=== PATIENT | female | born 1935 | race Caucasian/White ===

== ENCOUNTER 2016-08-13 13:04 | Inpatient (IN) | payer MEDICARE, BC ==
[~2016-08-13] VITALS: Ht 170.2 cm; Wt 56.6 kg
[~2016-08-13 13:04] MED LIST: AMIT50TA PO; ASPI-515 PO; BUDE10.22 INH; CEFD300C2 PO; DIGO250T PO; DILT120C2 PO; DOXY100C2 PO; FAMO20TA7 PO; FLUT1AER INH; FURO-93 PO; FURO20TA3 PO; FURO40TA6 PO; GABA100C8 PO; LEVO750T26 PO; LIDO700A5 TD; LINE600T37 PO; METO25TA35 PO; METO50TA82 PO; MORP15TA3 PO; MORP15TA39 PO; MULT1TAB9 PO; OXYC5CAP4 PO; POLY17PO5 PO; POTA10TA12 PO; POTA20PA PO; PRED5TAB PO; SENN1TAB7 PO; SIMV20TA3 PO; SPIR25TA PO; SULF1TAB24 PO; TIOT18CA INH; WARF1TAB7 PO; WARF2.5T PO; WARF2.5T73 PO-COUM; WARF2TAB7 PO; WARF5TAB7 PO-COUM
[2016-08-13 14:35] LABS: ASPARTATE AMINO TRANSFERASE 21 U/L (15-37); BLOOD UREA NITROGEN 20 mg/dL (7-18)
[2016-08-13] MEDS ORDERED: ELAVIL PO (15:57)
[2016-08-13] MEDS ORDERED: WARF2.5T PO (15:57)
[2016-08-13] MEDS ORDERED: FAMO-79 PO (15:57)
[2016-08-13] MEDS ORDERED: SODIUM CHLORIDE FLUSH 10ML SYR IVF ONE (16:00)
[2016-08-13] MEDS ORDERED: AMPICILLIN/SULBACTAM 3 GM in SODIUM CHLORIDE 0.9% 100 ML IVPB ONE (16:00)
[2016-08-13] MEDS ORDERED: DOCUSATE 100 MG CAPSULE PO PRN (18:00)
[2016-08-13] MEDS ORDERED: BISACODYL 10 MG SUPP PR PRN (18:00)
[2016-08-13] MEDS ORDERED: POLYETHYLENE GLYCOL 17 GM PACKET PO PRN (18:00)
[2016-08-13] MEDS ORDERED: ACETAMINOPHEN 325 MG TABLET PO PRN (18:00)
[2016-08-13] MEDS ORDERED: WARFARIN 2.5 MG TABLET PO-COUM SCH (18:00)
[2016-08-13] MEDS ORDERED: WARFARIN 1 MG TABLET PO-COUM ONE (19:00)
[2016-08-13 19:12] VITALS: BP 102/55
[2016-08-13 19:16] VITALS: BP 107/58
[2016-08-13 20:00] VITALS: BP 110/65
[2016-08-13] MEDS: Budesonide/Formoterol Fumarate (Symbicort 80-4.5 Mcg Inhaler) INH SCH (21:00)
[2016-08-13] MEDS: METOPROLOL TARTRATE 25 MG TABLET PO SCH (22:39)
[2016-08-13] MEDS: AMITRIPTYLINE 50 MG TABLET PO SCH (22:39)
[2016-08-13] MEDS: CEFTAROLINE 400 MG in SODIUM CHLORIDE 0.9% 100 ML IV SCH (23:17)
[2016-08-14 01:40] VITALS: BP 120/64
[2016-08-14] MEDS ORDERED: IPRATROPIUM 0.5 MG/2.5 ML INHA NPPB PRN (02:00)
[2016-08-14] MEDS: OXYcodone IR 5MG TABLET PO PRN ×2 (02:30→19:49)
[2016-08-14 07:25] LABS: BLOOD UREA NITROGEN 22 mg/dL (7-18)
[2016-08-14 07:28] LABS: ASPARTATE AMINO TRANSFERASE 15 U/L (15-37)
[2016-08-14 07:33] VITALS: BP 150/78
[2016-08-14] MEDS ORDERED: FUROSEMIDE 20 MG TABLET PO SCH (09:00)
[2016-08-14] MEDS: Budesonide/Formoterol Fumarate (Symbicort 80-4.5 Mcg Inhaler) INH SCH ×2 (10:35→21:00)
[2016-08-14] MEDS: DIGOXIN 0.25 MG TABLET PO SCH (11:11)
[2016-08-14] MEDS: METOPROLOL TARTRATE 25 MG TABLET PO SCH ×2 (11:12→21:29)
[2016-08-14] MEDS: CEFTAROLINE 400 MG in SODIUM CHLORIDE 0.9% 100 ML IV SCH (11:54)
[2016-08-14 12:29] VITALS: BP 107/52
[2016-08-14 13:11] VITALS: BP 148/68
[2016-08-14] MEDS ORDERED: WARFARIN 1 MG TABLET PO-COUM ONE (18:00)
[2016-08-14] MEDS ORDERED: SODIUM PHOSPHATE 20 MMOL in SODIUM CHLORIDE 0.9% 500 ML IV ONE (19:30)
[2016-08-14 19:44] VITALS: BP 130/64
[2016-08-14] MEDS: AMITRIPTYLINE 50 MG TABLET PO SCH (21:28)
[2016-08-15 02:05] VITALS: BP 137/64
[2016-08-15] MEDS: CEFTAROLINE 400 MG in SODIUM CHLORIDE 0.9% 100 ML IV SCH ×2 (02:28→16:01)
[2016-08-15] MEDS: OXYcodone IR 5MG TABLET PO PRN ×2 (04:12→12:38)
[2016-08-15 07:55] VITALS: BP 115/61
[2016-08-15] MEDS: Budesonide/Formoterol Fumarate (Symbicort 80-4.5 Mcg Inhaler) INH SCH ×2 (09:00→21:00)
[2016-08-15] MEDS: DIGOXIN 0.25 MG TABLET PO SCH (09:24)
[2016-08-15] MEDS: METOPROLOL TARTRATE 25 MG TABLET PO SCH ×2 (09:24→21:07)
[2016-08-15 13:59] VITALS: BP 133/69
[2016-08-15] MEDS ORDERED: WARFARIN 2.5 MG TABLET PO-COUM ONE (18:00)
[2016-08-15 19:31] VITALS: BP 117/68
[2016-08-15] MEDS: AMITRIPTYLINE 50 MG TABLET PO SCH (21:07)
[2016-08-16 01:50] VITALS: BP 148/77
[2016-08-16] MEDS: CEFTAROLINE 400 MG in SODIUM CHLORIDE 0.9% 100 ML IV SCH ×2 (03:03→16:00)
[2016-08-16] MEDS: OXYcodone IR 5MG TABLET PO PRN ×2 (04:11→23:02)
[2016-08-16 06:00] LABS: BLOOD UREA NITROGEN 12 mg/dL (7-18)
[2016-08-16 07:28] VITALS: BP 144/64
[2016-08-16] MEDS: DIGOXIN 0.25 MG TABLET PO SCH (09:00)
[2016-08-16] MEDS: Budesonide/Formoterol Fumarate (Symbicort 80-4.5 Mcg Inhaler) INH SCH ×2 (09:00→20:35)
[2016-08-16] MEDS: METOPROLOL TARTRATE 25 MG TABLET PO SCH ×2 (09:00→20:34)
[2016-08-16 15:13] VITALS: BP 131/78
[2016-08-16] MEDS ORDERED: WARFARIN 2 MG TABLET PO-COUM SCH (18:00)
[2016-08-16 19:51] VITALS: BP 148/66
[2016-08-16] MEDS: AMITRIPTYLINE 50 MG TABLET PO SCH (20:34)
[2016-08-17 01:18] VITALS: BP 152/69
[2016-08-17] MEDS: CEFTAROLINE 400 MG in SODIUM CHLORIDE 0.9% 100 ML IV SCH ×2 (03:14→14:50)
[2016-08-17] MEDS: OXYcodone IR 5MG TABLET PO PRN ×2 (03:14→22:38)
[2016-08-17 07:20] VITALS: BP 129/59
[2016-08-17] MEDS: Budesonide/Formoterol Fumarate (Symbicort 80-4.5 Mcg Inhaler) INH SCH ×2 (09:00→20:52)
[2016-08-17] MEDS: METOPROLOL TARTRATE 25 MG TABLET PO SCH ×2 (09:16→20:53)
[2016-08-17] MEDS: DIGOXIN 0.25 MG TABLET PO SCH (10:49)
[2016-08-17 13:37] VITALS: BP 130/68
[2016-08-17] MEDS ORDERED: WARFARIN 1 MG TABLET PO-COUM SCH (18:00)
[2016-08-17 19:40] VITALS: BP 166/65
[2016-08-17] MEDS: AMITRIPTYLINE 50 MG TABLET PO SCH (20:53)
[2016-08-18 00:59] VITALS: BP 149/85
[2016-08-18] MEDS: OXYcodone IR 5MG TABLET PO PRN (02:41)
[2016-08-18] MEDS: CEFTAROLINE 400 MG in SODIUM CHLORIDE 0.9% 100 ML IV SCH ×2 (02:42→13:54)
[2016-08-18 07:55] VITALS: BP 135/70
[2016-08-18] MEDS: METOPROLOL TARTRATE 25 MG TABLET PO SCH ×2 (08:12→21:20)
[2016-08-18] MEDS: DIGOXIN 0.25 MG TABLET PO SCH (08:12)
[2016-08-18] MEDS: Budesonide/Formoterol Fumarate (Symbicort 80-4.5 Mcg Inhaler) INH SCH ×2 (08:13→21:21)
[2016-08-18] MEDS ORDERED: CEFD300C2 PO (11:34)
[2016-08-18] MEDS ORDERED: WARF4TAB PO (11:34)
[2016-08-18] MEDS ORDERED: WARF3TAB PO (11:38)
[2016-08-18 13:05] VITALS: BP 146/80
[2016-08-18] MEDS ORDERED: WARFARIN 2 MG TABLET PO-COUM SCH (18:00)
[2016-08-18 18:57] VITALS: BP 137/71
[2016-08-18] MEDS: AMITRIPTYLINE 50 MG TABLET PO SCH (21:20)
== END 2016-08-18 22:15 | disposition home health service (06) | DRG 602 ==
LOC: ED 16:17 → EDIP 16:31 → 3NE 18:24
PROVIDERS: ADMIT Internal Medicine; ATTEND Internal Medicine
DX: L03.115 Cellulitis of right lower limb (principal); N17.0 Acute kidney failure with tubular necrosis; E87.2 Acidosis; D68.69 Other thrombophilia; L03.031 Cellulitis of right toe; R73.9 Hyperglycemia, unspecified; G89.4 Chronic pain syndrome; I50.9 Heart failure, unspecified; I11.0 Hypertensive heart disease with heart failure; I25.10 Atherosclerotic heart disease of native coronary artery without angina pectoris; I34.0 Nonrheumatic mitral (valve) insufficiency; I48.2 Chronic atrial fibrillation; J44.9 Chronic obstructive pulmonary disease, unspecified; M19.90 Unspecified osteoarthritis, unspecified site; Z66 Do not resuscitate; Z96.641 Presence of right artificial hip joint; Z79.01 Long term (current) use of anticoagulants; Z79.891 Long term (current) use of opiate analgesic; Z85.42 Personal history of malignant neoplasm of other parts of uterus; Z86.14 Personal history of Methicillin resistant Staphylococcus aureus infection; Z86.718 Personal history of other venous thrombosis and embolism; Z86.73 Personal history of transient ischemic attack (TIA), and cerebral infarction without residual deficits; Z87.891 Personal history of nicotine dependence; Z90.49 Acquired absence of other specified parts of digestive tract; Z90.710 Acquired absence of both cervix and uterus; Z88.6 Allergy status to analgesic agent; Z88.8 Allergy status to other drugs, medicaments and biological substances
CPT/HCPCS: 36415; 71010; 80048; 80053; 81001; 83036; 83605; 83735; 84100; 84145; 84443; 85025; 85610; 87040; 87086; 93005; 96365; J0295; J0712; J7040

== ENCOUNTER 2016-10-08 20:44 | Emergency (ER) | payer MEDICARE, BC ==
[~2016-10-08] VITALS: Ht 170.2 cm; Wt 53.0 kg
[~2016-10-08 20:44] MED LIST changes: -CEFD300C2 PO; +CEFD300C37 PO; +ELAVIL PO; +FAMO-79 PO; +WARF3TAB PO; +WARF4TAB PO
[2016-10-08] MEDS ORDERED: INSULIN REGULAR 100 UNITS/ML, 3ML VIAL SQ-INSULIN ONE (21:30)
[2016-10-08 22:40] VITALS: BP 128/75
== END 2016-10-08 22:42 | disposition home or self-care (01) ==
LOC: ED 21:35
DX: S06.0X0A Concussion without loss of consciousness, initial encounter (principal); J44.9 Chronic obstructive pulmonary disease, unspecified; E11.9 Type 2 diabetes mellitus without complications; I11.0 Hypertensive heart disease with heart failure; I50.9 Heart failure, unspecified; Z86.718 Personal history of other venous thrombosis and embolism; Z79.01 Long term (current) use of anticoagulants; Z86.73 Personal history of transient ischemic attack (TIA), and cerebral infarction without residual deficits; Z85.42 Personal history of malignant neoplasm of other parts of uterus; Z88.6 Allergy status to analgesic agent; Z88.8 Allergy status to other drugs, medicaments and biological substances; Z87.891 Personal history of nicotine dependence; W01.0XXA Fall on same level from slipping, tripping and stumbling without subsequent striking against object, initial encounter; Y93.01 Activity, walking, marching and hiking; Y92.009 Unspecified place in unspecified non-institutional (private) residence as the place of occurrence of the external cause; Y99.9 Unspecified external cause status
CPT/HCPCS: 36415; 70450; 85610; 99285

== ENCOUNTER 2016-11-17 06:54 | Inpatient (IN) | payer MEDICARE, BC ==
[~2016-11-17] VITALS: Ht 170.2 cm; Wt 50.2 kg
[~2016-11-17 06:54] MED LIST changes: +GABA-826 PO; -GABA100C8 PO; +MORP-52 PO; -MORP15TA39 PO
[2016-11-17] MEDS ORDERED: FURO-93 PO (07:58)
[2016-11-17] MEDS ORDERED: FURO-92 PO (07:58)
[2016-11-17 08:00] LABS: HEMOGLOBIN 11.3 g/dL (11.7-16.4); WHITE BLOOD COUNT 10.4 x10^3/uL (3.4-10)
[2016-11-17 08:06] LABS: BLOOD UREA NITROGEN 15 mg/dL (7-18)
[2016-11-17] MEDS ORDERED: CEFTRIAXONE PMX 1GM/50ML 50 ML IV ONE (11:00)
[2016-11-17] MEDS ORDERED: CEFTRIAXONE PMX 1GM/50ML 50 ML ONE (11:11)
[2016-11-17 12:41] VITALS: BP 159/92
[2016-11-17] MEDS: CEFTRIAXONE PMX 1GM/50ML 50 ML IV SCH (13:00)
[2016-11-17] MEDS ORDERED: DOCUSATE 100 MG CAPSULE PO PRN (13:00)
[2016-11-17] MEDS ORDERED: ONDANSETRON 2MG/ML, 2ML IVPush PRN (13:00)
[2016-11-17] MEDS ORDERED: BISACODYL 10 MG SUPP PR PRN (13:00)
[2016-11-17] MEDS ORDERED: POLYETHYLENE GLYCOL 17 GM PACKET PO PRN (13:00)
[2016-11-17] MEDS: OXYcodone IR 5MG TABLET PO PRN (17:08)
[2016-11-17 18:43] VITALS: BP_SYST 129; BP_SYST 144; BP_SYST 146; BP_DIAS 69; BP_DIAS 76
[2016-11-17] MEDS ORDERED: FAMOTIDINE 20 MG TABLET PO SCH (21:00)
[2016-11-17] MEDS: SODIUM CHLORIDE FLUSH 10ML SYR IVF SCH (21:00)
[2016-11-17] MEDS: METOPROLOL TARTRATE 25 MG TABLET PO SCH (21:02)
[2016-11-17] MEDS: POTASSIUM CHLORIDE 10 MEQ TABLET.ER PO SCH (21:02)
[2016-11-18 00:21] VITALS: BP 147/79
[2016-11-18] MEDS: OXYcodone IR 5MG TABLET PO PRN (01:40)
[2016-11-18 05:00] LABS: HEMATOCRIT 36.5 % (34.6-47.8); HEMOGLOBIN 12.2 g/dL (11.7-16.4); WHITE BLOOD COUNT 8.6 x10^3/uL (3.4-10)
[2016-11-18 05:09] LABS: BLOOD UREA NITROGEN 11 mg/dL (7-18)
[2016-11-18 05:24] LABS: ASPARTATE AMINO TRANSFERASE 24 U/L (15-37)
[2016-11-18 07:30] VITALS: BP 165/69
[2016-11-18] MEDS: AMITRIPTYLINE 50 MG TABLET PO SCH (07:36)
[2016-11-18] MEDS: SODIUM CHLORIDE FLUSH 10ML SYR IVF SCH ×2 (07:36→21:27)
[2016-11-18] MEDS: POTASSIUM CHLORIDE 10 MEQ TABLET.ER PO SCH ×2 (07:36→21:26)
[2016-11-18] MEDS: METOPROLOL TARTRATE 25 MG TABLET PO SCH ×2 (07:37→21:26)
[2016-11-18] MEDS: DIGOXIN 0.25 MG TABLET PO SCH (07:37)
[2016-11-18] MEDS: FUROSEMIDE 20 MG TABLET PO SCH (07:37)
[2016-11-18] MEDS: FAMOTIDINE 20 MG TABLET PO SCH (07:38)
[2016-11-18 08:30] VITALS: BP 126/63
[2016-11-18] MEDS ORDERED: ACETAMINOPHEN 325 MG TABLET PO ONE (10:00)
[2016-11-18] MEDS ORDERED: DIPHENHYDRAMINE 50 MG/ML, 1ML IVPush PRN (10:00)
[2016-11-18] MEDS ORDERED: HYDROCORTISONE 100 MG INJ. IVPush SCH (10:00)
[2016-11-18 12:45] VITALS: BP 129/54
[2016-11-18] MEDS: CEFTRIAXONE PMX 1GM/50ML 50 ML IV SCH (13:39)
[2016-11-18 19:40] VITALS: BP 120/58
[2016-11-19 01:12] VITALS: BP 146/73
[2016-11-19] MEDS: OXYcodone IR 5MG TABLET PO PRN ×3 (01:40→17:35)
[2016-11-19] MEDS: ACETAMINOPHEN 325 MG TABLET PO PRN (06:12)
[2016-11-19 06:24] VITALS: BP 133/87
[2016-11-19] MEDS: FAMOTIDINE 20 MG TABLET PO SCH (09:22)
[2016-11-19] MEDS: SODIUM CHLORIDE FLUSH 10ML SYR IVF SCH ×2 (09:22→22:33)
[2016-11-19] MEDS: POTASSIUM CHLORIDE 10 MEQ TABLET.ER PO SCH ×2 (09:23→22:31)
[2016-11-19] MEDS: AMITRIPTYLINE 50 MG TABLET PO SCH (09:23)
[2016-11-19] MEDS: DIGOXIN 0.25 MG TABLET PO SCH (09:23)
[2016-11-19] MEDS: FUROSEMIDE 20 MG TABLET PO SCH (09:23)
[2016-11-19] MEDS: METOPROLOL TARTRATE 25 MG TABLET PO SCH ×2 (09:23→21:00)
[2016-11-19 12:45] VITALS: BP 128/75
[2016-11-19] MEDS ORDERED: WARFARIN 2.5 MG TABLET PO-COUM ONE (18:00)
[2016-11-19 19:32] VITALS: BP 95/58
[2016-11-20] MEDS: OXYcodone IR 5MG TABLET PO PRN ×2 (01:03→10:43)
[2016-11-20 01:22] VITALS: BP 102/62
[2016-11-20 06:45] VITALS: BP 111/75
[2016-11-20] MEDS: METOPROLOL TARTRATE 25 MG TABLET PO SCH (08:57)
[2016-11-20] MEDS: FUROSEMIDE 20 MG TABLET PO SCH (08:58)
[2016-11-20] MEDS: DIGOXIN 0.25 MG TABLET PO SCH (08:58)
[2016-11-20] MEDS: AMITRIPTYLINE 50 MG TABLET PO SCH (08:58)
[2016-11-20] MEDS: POTASSIUM CHLORIDE 10 MEQ TABLET.ER PO SCH (08:58)
[2016-11-20] MEDS: SODIUM CHLORIDE FLUSH 10ML SYR IVF SCH (08:59)
[2016-11-20] MEDS: FAMOTIDINE 20 MG TABLET PO SCH (08:59)
[2016-11-20] MEDS: ACETAMINOPHEN 325 MG TABLET PO PRN (10:42)
[2016-11-20 12:30] VITALS: BP 105/68
[2016-11-20] MEDS ORDERED: WARF5TAB PO (15:12)
[2016-11-20] MEDS ORDERED: WARFARIN 5 MG TABLET PO-COUM ONE (18:00)
== END 2016-11-20 15:52 | DRG 604 ==
LOC: ED 10:19 → EDIP 10:31 → 3NW 11:27
PROVIDERS: ADMIT Internal Medicine
DX: S00.03XA Contusion of scalp, initial encounter (principal); E43 Unspecified severe protein-calorie malnutrition; D68.69 Other thrombophilia; E44.1 Mild protein-calorie malnutrition; Z68.1 Body mass index [BMI] 19.9 or less, adult; F07.81 Postconcussional syndrome; G89.29 Other chronic pain; I48.2 Chronic atrial fibrillation; D64.9 Anemia, unspecified; I11.0 Hypertensive heart disease with heart failure; I25.10 Atherosclerotic heart disease of native coronary artery without angina pectoris; I34.0 Nonrheumatic mitral (valve) insufficiency; I50.9 Heart failure, unspecified; J44.9 Chronic obstructive pulmonary disease, unspecified; N30.90 Cystitis, unspecified without hematuria; S01.81XA Laceration without foreign body of other part of head, initial encounter; Z66 Do not resuscitate; W18.30XA Fall on same level, unspecified, initial encounter; Y93.89 Activity, other specified; Y92.042 Bedroom in boarding-house as the place of occurrence of the external cause; Y99.8 Other external cause status; E11.42 Type 2 diabetes mellitus with diabetic polyneuropathy; H57.8 Other specified disorders of eye and adnexa; R13.10 Dysphagia, unspecified; R91.1 Solitary pulmonary nodule; Z79.01 Long term (current) use of anticoagulants; Z85.42 Personal history of malignant neoplasm of other parts of uterus; Z86.73 Personal history of transient ischemic attack (TIA), and cerebral infarction without residual deficits; Z87.891 Personal history of nicotine dependence; Z96.641 Presence of right artificial hip joint; Z86.718 Personal history of other venous thrombosis and embolism; Z90.49 Acquired absence of other specified parts of digestive tract; Z90.710 Acquired absence of both cervix and uterus; Z88.8 Allergy status to other drugs, medicaments and biological substances
CPT/HCPCS: 36415; 70450; 80048; 80053; 80162; 81001; 82040; 84443; 85025; 85610; 87086; 93005; 99285; J0696

== ENCOUNTER 2017-03-09 15:03 | Inpatient (IN) | payer MEDICARE, BC ==
[~2017-03-09] VITALS: Ht 170.2 cm; Wt 53.3 kg
[~2017-03-09 15:03] MED LIST changes: +FURO-92 PO; +OXYC5CAP2 PO; -OXYC5CAP4 PO; +WARF5TAB PO
[2017-03-09] MEDS ORDERED: FENTANYL PF 100 MCG/2ML IV PRN (15:30)
[2017-03-09 15:41] LABS: HEMATOCRIT 36.1 % (34.6-47.8); HEMOGLOBIN 12.1 g/dL (11.7-16.4); WHITE BLOOD COUNT 8.6 x10^3/uL (3.4-10)
[2017-03-09 15:53] LABS: BLOOD UREA NITROGEN 12 mg/dL (7-18)
[2017-03-09 15:57] LABS: IS PT STATUS REG ER OR PRE ER? YES
[2017-03-09] MEDS ORDERED: ELAVIL PO (16:57)
[2017-03-09] MEDS ORDERED: LABETALOL 5MG/ML, 20ML IVPush PRN (17:30)
[2017-03-09] MEDS ORDERED: ONDANSETRON ODT 4 MG PO PRN (17:30)
[2017-03-09] MEDS ORDERED: POLYETHYLENE GLYCOL 17 GM PACKET PO PRN (17:30)
[2017-03-09] MEDS ORDERED: ONDANSETRON 2MG/ML, 2ML IVPush PRN (17:30)
[2017-03-09] MEDS ORDERED: HYDROcodone/APAP 5/325 TABLET PO PRN (17:30)
[2017-03-09] MEDS ORDERED: ASPIRIN 325 MG TABLET PO ONE (18:00)
[2017-03-09 18:30] VITALS: BP 132/79
[2017-03-09] MEDS: SODIUM CHLORIDE 0.9% 1,000 ML IV SCH (18:59)
[2017-03-09 19:23] LABS: IS PT STATUS REG ER OR PRE ER? NO
[2017-03-09 19:34] VITALS: BP 132/79
[2017-03-09] MEDS: morphine SULFATE 10 MG/ML, 1ML IVPush PRN ×2 (19:53→22:33)
[2017-03-09 21:20] VITALS: BP 154/73
[2017-03-09] MEDS: HEPARIN 5,000 UNITS/ML, 1ML SQ SCH (21:22)
[2017-03-09] MEDS: AMITRIPTYLINE 25 MG TABLET PO SCH (21:23)
[2017-03-09] MEDS: FAMOTIDINE 20 MG TABLET PO SCH (21:23)
[2017-03-09] MEDS: METOPROLOL TARTRATE 25 MG TABLET PO SCH (21:23)
[2017-03-09] MEDS ORDERED: OXYcodone IR 5MG TABLET ONE (23:06)
[2017-03-09] MEDS: OXYcodone IR 5MG TABLET PO PRN (23:09)
[2017-03-10] MEDS: morphine SULFATE 10 MG/ML, 1ML IVPush PRN (00:11)
[2017-03-10 00:42] VITALS: BP 159/82
[2017-03-10 05:44] LABS: IS PT STATUS REG ER OR PRE ER? NO
[2017-03-10] MEDS: SODIUM CHLORIDE 0.9% 1,000 ML IV SCH ×2 (06:23→21:14)
[2017-03-10] MEDS: ASPIRIN 81 MG TABLET EC PO SCH (06:24)
[2017-03-10] MEDS: HEPARIN 5,000 UNITS/ML, 1ML SQ SCH ×3 (06:24→23:51)
[2017-03-10] MEDS: OXYcodone IR 5MG TABLET PO PRN ×3 (06:24→20:20)
[2017-03-10 07:39] VITALS: BP 144/70
[2017-03-10] MEDS: SENNA/DOCUSATE TABLET PO SCH (09:00)
[2017-03-10] MEDS: FAMOTIDINE 20 MG TABLET PO SCH ×2 (10:05→21:14)
[2017-03-10] MEDS: METOPROLOL TARTRATE 25 MG TABLET PO SCH ×2 (10:05→21:14)
[2017-03-10] MEDS: DIGOXIN 0.25 MG TABLET PO SCH (10:05)
[2017-03-10 15:16] VITALS: BP 157/79
[2017-03-10 20:04] VITALS: BP 149/76
[2017-03-10] MEDS: AMITRIPTYLINE 25 MG TABLET PO SCH (21:15)
[2017-03-11 01:44] VITALS: BP 154/71
[2017-03-11] MEDS: OXYcodone IR 5MG TABLET PO PRN (02:43)
[2017-03-11 05:17] LABS: HEMATOCRIT 32.7 % (34.6-47.8); HEMOGLOBIN 11.1 g/dL (11.7-16.4); WHITE BLOOD COUNT 8.4 x10^3/uL (3.4-10)
[2017-03-11 05:21] LABS: BLOOD UREA NITROGEN 17 mg/dL (7-18)
[2017-03-11] MEDS: HEPARIN 5,000 UNITS/ML, 1ML SQ SCH ×3 (05:25→16:24)
[2017-03-11] MEDS: ASPIRIN 81 MG TABLET EC PO SCH (05:25)
[2017-03-11 05:40] LABS: IS PT STATUS REG ER OR PRE ER? NO
[2017-03-11 07:56] VITALS: BP 183/96
[2017-03-11] MEDS ORDERED: REGADENOSON 0.4 MG/5 ML SYRINGE ONE (07:56)
[2017-03-11] MEDS: FAMOTIDINE 20 MG TABLET PO SCH ×2 (08:00→20:13)
[2017-03-11] MEDS: METOPROLOL TARTRATE 25 MG TABLET PO SCH (08:01)
[2017-03-11] MEDS: SENNA/DOCUSATE TABLET PO SCH (08:01)
[2017-03-11] MEDS: DIGOXIN 0.25 MG TABLET PO SCH (08:01)
[2017-03-11] MEDS: SODIUM CHLORIDE 0.9% 1,000 ML IV SCH ×2 (13:09→16:24)
[2017-03-11 14:19] VITALS: BP 166/80
[2017-03-11] MEDS ORDERED: CEFAZOLIN PMX 1GM/50ML 50 ML IVPB ONE (16:30)
[2017-03-11 19:53] VITALS: BP 161/80
[2017-03-11] MEDS: AMITRIPTYLINE 25 MG TABLET PO SCH (20:13)
[2017-03-12] MEDS: SODIUM CHLORIDE 0.9% 1,000 ML IV SCH ×4 (00:01→15:55)
[2017-03-12 01:24] VITALS: BP 152/76
[2017-03-12] MEDS: HEPARIN 5,000 UNITS/ML, 1ML SQ SCH ×3 (03:21→15:55)
[2017-03-12] MEDS: OXYcodone IR 5MG TABLET PO PRN ×2 (03:24→17:45)
[2017-03-12 05:42] LABS: HEMATOCRIT 32.8 % (34.6-47.8); HEMOGLOBIN 11.2 g/dL (11.7-16.4); WHITE BLOOD COUNT 8.6 x10^3/uL (3.4-10)
[2017-03-12] MEDS: ASPIRIN 81 MG TABLET EC PO SCH (06:00)
[2017-03-12 06:04] LABS: BLOOD UREA NITROGEN 10 mg/dL (7-18)
[2017-03-12 07:21] VITALS: BP 166/76
[2017-03-12] MEDS: SENNA/DOCUSATE TABLET PO SCH (09:00)
[2017-03-12] MEDS: FAMOTIDINE 20 MG TABLET PO SCH ×2 (09:29→21:52)
[2017-03-12 14:28] VITALS: BP 166/75
[2017-03-12 18:55] VITALS: BP 156/63
[2017-03-12] MEDS: AMITRIPTYLINE 25 MG TABLET PO SCH (21:52)
[2017-03-13] MEDS: HEPARIN 5,000 UNITS/ML, 1ML SQ SCH ×3 (01:49→16:27)
[2017-03-13 02:00] VITALS: BP 169/91
[2017-03-13] MEDS: OXYcodone IR 5MG TABLET PO PRN ×2 (03:55→14:00)
[2017-03-13] MEDS: SODIUM CHLORIDE 0.9% 1,000 ML IV SCH (06:01)
[2017-03-13] MEDS: ASPIRIN 81 MG TABLET EC PO SCH (06:01)
[2017-03-13 06:26] LABS: HEMATOCRIT 32.1 % (34.6-47.8); HEMOGLOBIN 10.7 g/dL (11.7-16.4); WHITE BLOOD COUNT 9.2 x10^3/uL (3.4-10)
[2017-03-13 06:37] LABS: ASPARTATE AMINO TRANSFERASE 19 U/L (15-37); BLOOD UREA NITROGEN 8 mg/dL (7-18)
[2017-03-13 08:09] VITALS: BP 180/90
[2017-03-13] MEDS: SENNA/DOCUSATE TABLET PO SCH (09:00)
[2017-03-13] MEDS ORDERED: AMLODIPINE 5 MG TABLET PO ONE (09:00)
[2017-03-13] MEDS: FAMOTIDINE 20 MG TABLET PO SCH ×2 (09:02→21:30)
[2017-03-13 14:02] VITALS: BP 169/77
[2017-03-13 18:31] VITALS: BP 178/71
[2017-03-13] MEDS: AMITRIPTYLINE 25 MG TABLET PO SCH (21:29)
[2017-03-14] MEDS: HEPARIN 5,000 UNITS/ML, 1ML SQ SCH ×3 (00:27→16:42)
[2017-03-14 03:55] VITALS: BP 172/96
[2017-03-14] MEDS: ASPIRIN 81 MG TABLET EC PO SCH (05:11)
[2017-03-14 08:02] VITALS: BP 158/60
[2017-03-14] MEDS: SENNA/DOCUSATE TABLET PO SCH (08:20)
[2017-03-14] MEDS: FAMOTIDINE 20 MG TABLET PO SCH ×2 (08:20→21:36)
[2017-03-14] MEDS: AMLODIPINE 5 MG TABLET PO SCH (08:20)
[2017-03-14] MEDS: OXYcodone IR 5MG TABLET PO PRN ×2 (09:42→20:01)
[2017-03-14] MEDS: METOPROLOL TARTRATE 25 MG TABLET PO SCH ×2 (12:50→21:37)
[2017-03-14 15:32] VITALS: BP 156/86
[2017-03-14 18:50] VITALS: BP 173/95
[2017-03-14] MEDS: AMITRIPTYLINE 25 MG TABLET PO SCH (21:36)
[2017-03-15 00:21] VITALS: BP 150/85
[2017-03-15] MEDS: HEPARIN 5,000 UNITS/ML, 1ML SQ SCH ×3 (02:20→13:37)
[2017-03-15] MEDS: ASPIRIN 81 MG TABLET EC PO SCH (06:05)
[2017-03-15] MEDS: METOPROLOL TARTRATE 25 MG TABLET PO SCH (06:06)
[2017-03-15] MEDS: OXYcodone IR 5MG TABLET PO PRN (06:06)
[2017-03-15 06:07] LABS: BLOOD UREA NITROGEN 8 mg/dL (7-18)
[2017-03-15 06:11] LABS: HEMOGLOBIN 11.2 g/dL (11.7-16.4)
[2017-03-15 08:00] VITALS: BP 160/87
[2017-03-15] MEDS: FAMOTIDINE 20 MG TABLET PO SCH (08:18)
[2017-03-15] MEDS: SENNA/DOCUSATE TABLET PO SCH (08:18)
[2017-03-15] MEDS: AMLODIPINE 5 MG TABLET PO SCH (08:18)
[2017-03-15] MEDS ORDERED: POTASSIUM CHLORIDE 20 MEQ TAB.ER.PRT PO ONE ×2 (10:00→14:00)
[2017-03-15] MEDS ORDERED: AMLO5TAB2 PO (12:55)
[2017-03-15] MEDS ORDERED: ASPI-621 PO (12:55)
[2017-03-15] MEDS ORDERED: METO25TA35 PO (12:55)
[2017-03-15] MEDS ORDERED: OMNIPAQUE 350 MG/ML, 100ML BOTTLE ONE (14:24)
[2017-03-15 15:31] VITALS: BP_SYST 150; BP_SYST 172; BP_DIAS 77; BP_DIAS 80
[2017-03-15] MEDS ORDERED: FLU VACC QS2017-18 (36MOS+) UP/PF 0.5 ML IM-VACC ONE (16:30)
== END 2017-03-15 18:00 | DRG 308 ==
LOC: ED 17:07 → EDIP 17:10 → 5SO 18:32
PROVIDERS: ADMIT Hospitalist; ATTEND Hospitalist
DX: I49.5 Sick sinus syndrome (principal); I46.9 Cardiac arrest, cause unspecified; E44.0 Moderate protein-calorie malnutrition; D68.69 Other thrombophilia; I08.1 Rheumatic disorders of both mitral and tricuspid valves; I27.20 Pulmonary hypertension, unspecified; I11.0 Hypertensive heart disease with heart failure; I48.92 Unspecified atrial flutter; I48.2 Chronic atrial fibrillation; I50.9 Heart failure, unspecified; Z68.1 Body mass index [BMI] 19.9 or less, adult; S32.011A Stable burst fracture of first lumbar vertebra, initial encounter for closed fracture; D64.9 Anemia, unspecified; E11.9 Type 2 diabetes mellitus without complications; E87.6 Hypokalemia; G89.4 Chronic pain syndrome; I25.10 Atherosclerotic heart disease of native coronary artery without angina pectoris; Z90.710 Acquired absence of both cervix and uterus; Z96.641 Presence of right artificial hip joint; J44.9 Chronic obstructive pulmonary disease, unspecified; M16.12 Unilateral primary osteoarthritis, left hip; W18.39XA Other fall on same level, initial encounter; M48.061 Spinal stenosis, lumbar region without neurogenic claudication; Z66 Do not resuscitate; Z79.899 Other long term (current) drug therapy; Z85.42 Personal history of malignant neoplasm of other parts of uterus; Z86.14 Personal history of Methicillin resistant Staphylococcus aureus infection; Z86.73 Personal history of transient ischemic attack (TIA), and cerebral infarction without residual deficits; Z87.891 Personal history of nicotine dependence; Z90.49 Acquired absence of other specified parts of digestive tract; Z95.0 Presence of cardiac pacemaker; Z88.8 Allergy status to other drugs, medicaments and biological substances; Y93.89 Activity, other specified; Y92.89 Other specified places as the place of occurrence of the external cause
CPT/HCPCS: 36415; 71010; 71275; 72192; 78452; 80048; 80053; 80162; 82040; 83735; 84484; 85025; 85610; 93005; 93017; 93306; 99285; J1644; J2405; J2785; Q9967; A9502; C9898; J2270; J7030